=== PATIENT | male | born 1975 | race African-American/Black ===

== ENCOUNTER 2022-06-13 12:33 | Inpatient (IN) | payer MEDICAID ==
[~2022-06-13] VITALS: Ht 175.3 cm; Wt 77.6 kg
[2022-06-13 13:31] LABS: AMPHET/METH SCREEN,URINE NEGATIVE (NEGATIVE); BARBITURATE SCREEN, URINE NEGATIVE (NEGATIVE); BENZODIAZEPINES SCREEN,URINE NEGATIVE (NEGATIVE); CANNABINOID SCREEN,URINE POSITIVE (NEGATIVE); COCAINE SCREEN,URINE NEGATIVE (NEGATIVE); METHADONE SCREEN, URINE NEGATIVE (NEGATIVE); OPIATE SCREEN,URINE NEGATIVE (NEGATIVE)
[2022-06-13 13:32] LABS: PHENCYCLIDINE SCREEN,URINE NEGATIVE (NEGATIVE)
[2022-06-13 14:00] LABS: BASOPHILS % (AUTO) 0.3 % (0.0-2.0); EOSINOPHILS % (AUTO) 0.4 % (1.0-6.0); HEMATOCRIT 37.3 % (41-53); HEMOGLOBIN 12.4 g/dL (13.5-17.5); LYMPHOCYTES # (AUTO) 1.3 K/uL (1.0-4.8); LYMPHOCYTES % (AUTO) 22.2 % (22.0-44.0); MEAN CORPUSCULAR HEMOGLOBIN 30.7 pg (26.0-34.0); MEAN CORPUSCULAR HGB CONC 33.3 G/dL (31.0-37.0); MEAN CORPUSCULAR VOLUME 92 fL (80-100); MONOCYTES # (AUTO) 0.2 K/uL (0.1-1.0); MONOCYTES % (AUTO) 3.8 % (2.0-9.0); NEUTROPHILS # (AUTO) 4.2 K/uL (1.8-7.7); NEUTROPHILS % (AUTO) 73.3 % (40.0-70.0); PLATELET COUNT (AUTO) 216 K/uL (150-450); RED BLOOD CELL COUNT(AUTO) 4.04 MIL/uL (4.50-5.90); RED CELL DISTRIBUTION WIDTH 12.9 % (11.5-14.5)
[2022-06-13 14:21] LABS: SALICYLATE 5.1 mg/dL (2.8-20.0)
[2022-06-13] MEDS ORDERED: CARB100 PO (14:27)
[2022-06-13] MEDS ORDERED: PRAZ5 PO (14:27)
[2022-06-13] MEDS ORDERED: QUET200T PO (14:27)
[2022-06-13] MEDS ORDERED: HYDR-4527 PO (14:27)
[2022-06-13] MEDS ORDERED: CITA-144 PO (14:27)
[2022-06-13] MEDS ORDERED: PROMETHAZINE HCL 25 MG TABLET PO PRN ×2 (14:45→21:15)
[2022-06-13] MEDS ORDERED: GuaiFENesin/D-METHORPHAN [SUGAR-FREE] 200-20MG/10 ML SYRUP UDCUP PO PRN (14:45)
[2022-06-13] MEDS ORDERED: OLANZapine 5 MG RAPDIS TABLET PO PRN (14:45)
[2022-06-13] MEDS ORDERED: HydrOXYzine PAMOATE 50 MG CAPSULE PO PRN (14:45)
[2022-06-13] MEDS ORDERED: TUBERCULIN, PURIFIED PROTEIN DERIVATIVE 5 TU/0.1 ML SYRINGE ID ONE ×2 (14:45→21:15)
[2022-06-13 15:08] LABS: ALANINE AMINOTRANSFERASE 20 U/L (12-78); ALBUMIN 3.4 g/dL (3.4-5.0); ALKALINE PHOSPHATASE 71 U/L (46-116); ANION GAP 7 mmol/L (8-16); ASPARTATE AMINOTRANSFERASE 15 U/L (15-37); BILIRUBIN,TOTAL 0.2 mg/dL (0.1-1.0); CALCIUM, TOTAL 8.5 mg/dL (8.8-10.5); CARBON DIOXIDE 28 mmol/L (22-29); CHLORIDE 106 mmol/L (98-107); CREATININE 1.49 mg/dL (0.60-1.30); GLOMERULAR FILTR. RATE CALC > 60 mL/min (>60); GLUCOSE,RANDOM 85 mg/dL (70-110); POTASSIUM 4.3 mmol/L (3.5-5.1); SODIUM SERUM 141 mmol/L (136-145); UREA NITROGEN, BLOOD 15 mg/dL (7-18)
[2022-06-13 15:09] LABS: COVID AG,FIA SOURCE NASAL SWAB
[2022-06-13 15:09] LABS: ACETAMINOPHEN < 2 mcg/mL (10-30)
[2022-06-13 15:20] LABS: TOTAL PROTEIN, SERUM 6.8 g/dL (6.4-8.2)
[2022-06-13] MEDS: THIAMINE 100 MG TABLET PO SCH (19:38)
[2022-06-13] MEDS ORDERED: MELATONIN 5 MG TABLET PO SCH (21:00)
[2022-06-13] MEDS ORDERED: OLANZapine 5 MG RAPDIS TABLET PO SCH (21:00)
[2022-06-13] MEDS: MELATONIN 5 MG TABLET PO SCH (21:00)
[2022-06-13] MEDS ORDERED: ACETAMINOPHEN 325 MG TABLET PO PRN (21:15)
[2022-06-13] MEDS ORDERED: LOPERAMIDE HCL 2 MG CAPSULE PO PRN (21:15)
[2022-06-13] MEDS ORDERED: MAG HYDROX/AL HYDROX/SIMETH ES 30 ML SUSPENSION UDCUP PO PRN (21:15)
[2022-06-13 22:21] VITALS: BP 117/75
[2022-06-14] MEDS ORDERED: INFLUENZA VIRUS VACCINE QVS 2022-23 (6MO+)/PF 60 MCG/0.5 ML SYRINGE IM. ONE (04:30)
[2022-06-14] MEDS: GABAPENTIN 300 MG CAPSULE PO SCH ×4 (08:15→20:38)
[2022-06-14] MEDS: FOLIC ACID 1 MG TABLET PO SCH (08:15)
[2022-06-14] MEDS: OMEGA-3/DHA/EPA/FISH OIL 1,000 MG CAPSULE PO SCH (08:15)
[2022-06-14] MEDS: MULTIVITAMINS WITH MINERALS, THERAPEUTIC TABLET PO SCH (08:15)
[2022-06-14] MEDS: THIAMINE 100 MG TABLET PO SCH ×2 (08:15→16:14)
[2022-06-14] MEDS: NALTREXONE HCL 50 MG TABLET PO SCH (08:16)
[2022-06-14 08:53] VITALS: BP 109/56
[2022-06-14] MEDS ORDERED: OMEGA-3/DHA/EPA/FISH OIL 1,000 MG CAPSULE PO SCH (09:00)
[2022-06-14] MEDS ORDERED: NALTREXONE HCL 50 MG TABLET PO SCH (09:00)
[2022-06-14] MEDS ORDERED: DULoxetine HCL 20 MG CAPSULE PO SCH (09:00)
[2022-06-14] MEDS ORDERED: LURASIDONE HCL 20 MG TABLET PO SCH (17:00)
[2022-06-14] MEDS ORDERED: ACETAMINOPHEN 325 MG TABLET PO PRN (20:30)
[2022-06-14] MEDS ORDERED: IBUPROFEN 600 MG TABLET PO PRN (20:30)
[2022-06-14 20:34] VITALS: BP 128/73
[2022-06-14] MEDS: DIVALPROEX SODIUM 500 MG ER TABLET PO SCH (20:38)
[2022-06-14] MEDS: PRAZOSIN HCL 1 MG CAPSULE PO SCH (20:38)
[2022-06-14] MEDS: MELATONIN 5 MG TABLET PO SCH (20:38)
[2022-06-15 02:28] VITALS: BP 123/89
[2022-06-15] MEDS: LORazepam 2 MG TABLET PO PRN (02:38)
[2022-06-15] MEDS: ZOLPIDEM TARTRATE 10 MG TABLET PO PRN (02:38)
[2022-06-15 08:30] VITALS: BP 128/70
[2022-06-15] MEDS: NALTREXONE HCL 50 MG TABLET PO SCH (08:44)
[2022-06-15] MEDS: GABAPENTIN 300 MG CAPSULE PO SCH ×2 (08:45→12:16)
[2022-06-15] MEDS: BuPROPion HCL XL 150 MG ER TABLET PO SCH (08:45)
[2022-06-15] MEDS: MULTIVITAMINS WITH MINERALS, THERAPEUTIC TABLET PO SCH (08:45)
[2022-06-15] MEDS: OMEGA-3/DHA/EPA/FISH OIL 1,000 MG CAPSULE PO SCH (08:45)
[2022-06-15] MEDS: THIAMINE 100 MG TABLET PO SCH ×2 (08:45→17:04)
[2022-06-15] MEDS: FOLIC ACID 1 MG TABLET PO SCH (08:45)
[2022-06-15] MEDS ORDERED: LURASIDONE HCL 40 MG TABLET PO SCH (17:00)
[2022-06-15] MEDS: GABAPENTIN 400 MG CAPSULE PO SCH ×2 (17:07→20:15)
[2022-06-15] MEDS: PRAZOSIN HCL 1 MG CAPSULE PO SCH (20:15)
[2022-06-15] MEDS: DIVALPROEX SODIUM 500 MG ER TABLET PO SCH (20:15)
[2022-06-15] MEDS: MELATONIN 5 MG TABLET PO SCH (20:15)
[2022-06-15 20:26] VITALS: BP 118/67
[2022-06-15] MEDS ORDERED: TraZODone HCL 100 MG TABLET PO SCH (21:00)
[2022-06-15] MEDS ORDERED: MIRTAZAPINE 15 MG TABLET PO SCH (21:00)
[2022-06-16 08:13] VITALS: BP 120/73
[2022-06-16] MEDS: THIAMINE 100 MG TABLET PO SCH ×2 (09:00→17:04)
[2022-06-16] MEDS: NALTREXONE HCL 50 MG TABLET PO SCH (09:00)
[2022-06-16] MEDS: FOLIC ACID 1 MG TABLET PO SCH (09:00)
[2022-06-16] MEDS: MULTIVITAMINS WITH MINERALS, THERAPEUTIC TABLET PO SCH (09:00)
[2022-06-16] MEDS: OMEGA-3/DHA/EPA/FISH OIL 1,000 MG CAPSULE PO SCH (09:00)
[2022-06-16] MEDS: BuPROPion HCL XL 150 MG ER TABLET PO SCH (09:24)
[2022-06-16] MEDS: GABAPENTIN 400 MG CAPSULE PO SCH ×4 (09:24→20:17)
[2022-06-16] MEDS: DIVALPROEX SODIUM 500 MG ER TABLET PO SCH (20:17)
[2022-06-16] MEDS: MELATONIN 5 MG TABLET PO SCH (20:17)
[2022-06-16] MEDS: QUEtiapine FUMARATE 200 MG TABLET PO SCH (20:18)
[2022-06-16 20:42] VITALS: BP 106/77
[2022-06-16] MEDS ORDERED: PRAZOSIN HCL 1 MG CAPSULE PO SCH (21:00)
[2022-06-16] MEDS ORDERED: MIRTAZAPINE 15 MG TABLET PO SCH (21:00)
[2022-06-17 08:31] VITALS: BP 106/78
[2022-06-17] MEDS: MULTIVITAMINS WITH MINERALS, THERAPEUTIC TABLET PO SCH (09:00)
[2022-06-17] MEDS: THIAMINE 100 MG TABLET PO SCH ×2 (09:00→17:17)
[2022-06-17] MEDS: FOLIC ACID 1 MG TABLET PO SCH (09:00)
[2022-06-17] MEDS ORDERED: BuPROPion HCL XL 150 MG ER TABLET PO SCH (09:00)
[2022-06-17] MEDS: GABAPENTIN 400 MG CAPSULE PO SCH ×2 (09:00→12:11)
[2022-06-17] MEDS: OMEGA-3/DHA/EPA/FISH OIL 1,000 MG CAPSULE PO SCH (09:00)
[2022-06-17] MEDS: NALTREXONE HCL 50 MG TABLET PO SCH (09:02)
[2022-06-17] MEDS: GABAPENTIN 300 MG CAPSULE PO SCH ×2 (17:17→20:45)
[2022-06-17] MEDS: QUEtiapine FUMARATE 200 MG TABLET PO SCH (20:43)
[2022-06-17] MEDS: DIVALPROEX SODIUM 500 MG ER TABLET PO SCH (20:44)
[2022-06-17] MEDS: MELATONIN 5 MG TABLET PO SCH (20:44)
[2022-06-17] MEDS: MIRTAZAPINE 30 MG TABLET PO SCH (20:47)
[2022-06-17] MEDS: PRAZOSIN HCL 1 MG CAPSULE PO SCH (21:18)
[2022-06-18] VITALS: BP 111/72
[2022-06-18 09:04] VITALS: BP 118/72
[2022-06-18] MEDS: LORazepam 2 MG TABLET PO PRN (10:05)
[2022-06-18] MEDS: NALTREXONE HCL 50 MG TABLET PO SCH (10:06)
[2022-06-18] MEDS: THIAMINE 100 MG TABLET PO SCH ×2 (10:06→16:49)
[2022-06-18] MEDS: MULTIVITAMINS WITH MINERALS, THERAPEUTIC TABLET PO SCH (10:06)
[2022-06-18] MEDS: FOLIC ACID 1 MG TABLET PO SCH (10:08)
[2022-06-18] MEDS: BuPROPion HCL XL 150 MG ER TABLET PO SCH (10:08)
[2022-06-18] MEDS: GABAPENTIN 300 MG CAPSULE PO SCH ×4 (10:08→20:12)
[2022-06-18] MEDS: OMEGA-3/DHA/EPA/FISH OIL 1,000 MG CAPSULE PO SCH (10:09)
[2022-06-18 20:06] VITALS: BP 124/71
[2022-06-18] MEDS: MELATONIN 5 MG TABLET PO SCH (20:09)
[2022-06-18] MEDS: PRAZOSIN HCL 1 MG CAPSULE PO SCH (20:09)
[2022-06-18] MEDS: MIRTAZAPINE 30 MG TABLET PO SCH (20:12)
[2022-06-18] MEDS: DIVALPROEX SODIUM 500 MG ER TABLET PO SCH (20:12)
[2022-06-18] MEDS: QUEtiapine FUMARATE 200 MG TABLET PO SCH (20:12)
[2022-06-19 08:28] VITALS: BP 120/70
[2022-06-19 08:31] LABS: GLUCOMETER DEV NAME(LOC) POC.BV
[2022-06-19] MEDS: FLUTICASONE PROPIONATE 50 MCG/SPRAY 16 GM NASAL SPRAY NASAL SCH ×2 (09:00→17:42)
[2022-06-19] MEDS: BuPROPion HCL XL 150 MG ER TABLET PO SCH (10:04)
[2022-06-19] MEDS: MULTIVITAMINS WITH MINERALS, THERAPEUTIC TABLET PO SCH (10:04)
[2022-06-19] MEDS: NALTREXONE HCL 50 MG TABLET PO SCH (10:05)
[2022-06-19] MEDS: THIAMINE 100 MG TABLET PO SCH ×2 (10:05→17:41)
[2022-06-19] MEDS: GABAPENTIN 300 MG CAPSULE PO SCH ×4 (10:05→20:51)
[2022-06-19] MEDS: OMEGA-3/DHA/EPA/FISH OIL 1,000 MG CAPSULE PO SCH (10:06)
[2022-06-19] MEDS: FOLIC ACID 1 MG TABLET PO SCH (10:06)
[2022-06-19] MEDS: LORazepam 2 MG TABLET PO PRN (17:42)
[2022-06-19] MEDS: MAGNESIUM HYDROXIDE SUSPENSION 30 ML UDCUP PO PRN (20:08)
[2022-06-19] MEDS: QUEtiapine FUMARATE 200 MG TABLET PO SCH (20:51)
[2022-06-19] MEDS: DIVALPROEX SODIUM 500 MG ER TABLET PO SCH (20:51)
[2022-06-19] MEDS: MIRTAZAPINE 30 MG TABLET PO SCH (20:51)
[2022-06-19] MEDS: PRAZOSIN HCL 1 MG CAPSULE PO SCH (20:52)
[2022-06-19] MEDS: MELATONIN 5 MG TABLET PO SCH (20:52)
[2022-06-19 22:05] VITALS: BP 119/81
[2022-06-20] MEDS: LORazepam 2 MG TABLET PO PRN (04:48)
[2022-06-20 04:51] VITALS: BP 121/68
[2022-06-20 08:28] VITALS: BP 155/90
[2022-06-20] MEDS: FOLIC ACID 1 MG TABLET PO SCH (10:40)
[2022-06-20] MEDS: GABAPENTIN 300 MG CAPSULE PO SCH ×4 (10:40→21:40)
[2022-06-20] MEDS: BuPROPion HCL XL 150 MG ER TABLET PO SCH (10:40)
[2022-06-20] MEDS: MULTIVITAMINS WITH MINERALS, THERAPEUTIC TABLET PO SCH (10:40)
[2022-06-20] MEDS: NALTREXONE HCL 50 MG TABLET PO SCH (10:40)
[2022-06-20] MEDS: THIAMINE 100 MG TABLET PO SCH ×2 (10:40→16:59)
[2022-06-20] MEDS: OMEGA-3/DHA/EPA/FISH OIL 1,000 MG CAPSULE PO SCH (10:40)
[2022-06-20] MEDS: FLUTICASONE PROPIONATE 50 MCG/SPRAY 16 GM NASAL SPRAY NASAL SCH ×2 (10:41→17:27)
[2022-06-20 20:44] VITALS: BP 115/74
[2022-06-20] MEDS: MIRTAZAPINE 30 MG TABLET PO SCH (21:38)
[2022-06-20] MEDS: DIVALPROEX SODIUM 500 MG ER TABLET PO SCH (21:39)
[2022-06-20] MEDS: QUEtiapine FUMARATE 200 MG TABLET PO SCH (21:40)
[2022-06-20] MEDS: MELATONIN 5 MG TABLET PO SCH (21:41)
[2022-06-20] MEDS: PRAZOSIN HCL 1 MG CAPSULE PO SCH (21:41)
[2022-06-21 08:56] VITALS: BP 119/76
[2022-06-21] MEDS ORDERED: PARoxetine HCL 20 MG TABLET PO SCH (09:00)
[2022-06-21] MEDS: GABAPENTIN 300 MG CAPSULE PO SCH ×4 (09:46→20:25)
[2022-06-21] MEDS: NALTREXONE HCL 50 MG TABLET PO SCH (09:46)
[2022-06-21] MEDS: BuPROPion HCL XL 150 MG ER TABLET PO SCH (09:47)
[2022-06-21] MEDS: FOLIC ACID 1 MG TABLET PO SCH (09:47)
[2022-06-21] MEDS: OMEGA-3/DHA/EPA/FISH OIL 1,000 MG CAPSULE PO SCH (09:47)
[2022-06-21] MEDS: MULTIVITAMINS WITH MINERALS, THERAPEUTIC TABLET PO SCH (09:47)
[2022-06-21] MEDS: THIAMINE 100 MG TABLET PO SCH ×2 (09:47→17:08)
[2022-06-21] MEDS: FLUTICASONE PROPIONATE 50 MCG/SPRAY 16 GM NASAL SPRAY NASAL SCH ×2 (09:48→17:10)
[2022-06-21] MEDS: NICOTINE POLACRILEX 2 MG LOZENGE PO PRN (13:26)
[2022-06-21] MEDS: PRAZOSIN HCL 1 MG CAPSULE PO SCH (20:25)
[2022-06-21] MEDS: DIVALPROEX SODIUM 500 MG ER TABLET PO SCH (20:25)
[2022-06-21] MEDS: MIRTAZAPINE 30 MG TABLET PO SCH (20:25)
[2022-06-21] MEDS: QUEtiapine FUMARATE 200 MG TABLET PO SCH (20:25)
[2022-06-21] MEDS: MELATONIN 5 MG TABLET PO SCH (20:25)
[2022-06-21 20:49] VITALS: BP 123/76
[2022-06-22 08:36] VITALS: BP 135/81
[2022-06-22] MEDS ORDERED: PARoxetine HCL 10 MG TABLET PO SCH (09:00)
[2022-06-22] MEDS ORDERED: PARoxetine HCL 20 MG TABLET PO SCH (09:00)
[2022-06-22] MEDS: MULTIVITAMINS WITH MINERALS, THERAPEUTIC TABLET PO SCH (09:31)
[2022-06-22] MEDS: THIAMINE 100 MG TABLET PO SCH ×2 (09:31→17:10)
[2022-06-22] MEDS: BuPROPion HCL XL 150 MG ER TABLET PO SCH (09:31)
[2022-06-22] MEDS: FOLIC ACID 1 MG TABLET PO SCH (09:31)
[2022-06-22] MEDS: NALTREXONE HCL 50 MG TABLET PO SCH (09:32)
[2022-06-22] MEDS: OMEGA-3/DHA/EPA/FISH OIL 1,000 MG CAPSULE PO SCH (09:32)
[2022-06-22] MEDS: GABAPENTIN 300 MG CAPSULE PO SCH ×3 (09:33→17:11)
[2022-06-22] MEDS: FLUTICASONE PROPIONATE 50 MCG/SPRAY 16 GM NASAL SPRAY NASAL SCH ×2 (09:33→17:11)
[2022-06-22] MEDS: LORazepam 2 MG TABLET PO PRN (10:51)
[2022-06-22] MEDS: MAGNESIUM HYDROXIDE SUSPENSION 30 ML UDCUP PO PRN (12:58)
[2022-06-22] MEDS: NICOTINE POLACRILEX 2 MG LOZENGE PO PRN (15:08)
[2022-06-22] MEDS: DIVALPROEX SODIUM 500 MG ER TABLET PO SCH (17:10)
[2022-06-22] MEDS: QUEtiapine FUMARATE 200 MG TABLET PO SCH (20:31)
[2022-06-22] MEDS: MELATONIN 5 MG TABLET PO SCH (20:31)
[2022-06-22] MEDS: MIRTAZAPINE 30 MG TABLET PO SCH (20:33)
[2022-06-22] MEDS: PRAZOSIN HCL 1 MG CAPSULE PO SCH (20:33)
[2022-06-22 20:36] VITALS: BP 119/73
[2022-06-23 06:35] VITALS: BP 130/80
[2022-06-23 08:26] VITALS: BP 128/80
[2022-06-23] MEDS: FOLIC ACID 1 MG TABLET PO SCH (09:24)
[2022-06-23] MEDS: DIVALPROEX SODIUM 500 MG ER TABLET PO SCH ×3 (09:24→17:23)
[2022-06-23] MEDS: OMEGA-3/DHA/EPA/FISH OIL 1,000 MG CAPSULE PO SCH (09:24)
[2022-06-23] MEDS: FLUTICASONE PROPIONATE 50 MCG/SPRAY 16 GM NASAL SPRAY NASAL SCH ×2 (09:24→17:24)
[2022-06-23] MEDS: GABAPENTIN 300 MG CAPSULE PO SCH ×3 (09:25→17:23)
[2022-06-23] MEDS: BuPROPion HCL XL 150 MG ER TABLET PO SCH (09:27)
[2022-06-23] MEDS: NALTREXONE HCL 50 MG TABLET PO SCH (09:27)
[2022-06-23] MEDS: PARoxetine HCL 20 MG TABLET PO SCH (09:27)
[2022-06-23] MEDS: MULTIVITAMINS WITH MINERALS, THERAPEUTIC TABLET PO SCH (09:27)
[2022-06-23] MEDS: NICOTINE POLACRILEX 2 MG LOZENGE PO PRN ×2 (11:53→16:25)
[2022-06-23] MEDS ORDERED: PALIPERIDONE PALMITATE 234 MG/1.5 ML SYRINGE IM ONE (14:45)
[2022-06-23] MEDS: PRAZOSIN HCL 1 MG CAPSULE PO SCH (20:06)
[2022-06-23] MEDS: QUEtiapine FUMARATE 200 MG TABLET PO SCH (20:07)
[2022-06-23] MEDS: MELATONIN 5 MG TABLET PO SCH (20:07)
[2022-06-23] MEDS: MIRTAZAPINE 30 MG TABLET PO SCH (20:08)
[2022-06-23] MEDS: LORazepam 2 MG TABLET PO PRN (20:08)
[2022-06-23 21:33] VITALS: BP 118/83
[2022-06-24] MEDS: BuPROPion HCL XL 150 MG ER TABLET PO SCH (08:58)
[2022-06-24] MEDS: DIVALPROEX SODIUM 500 MG ER TABLET PO SCH ×3 (08:58→17:03)
[2022-06-24] MEDS: MULTIVITAMINS WITH MINERALS, THERAPEUTIC TABLET PO SCH (08:58)
[2022-06-24] MEDS: GABAPENTIN 300 MG CAPSULE PO SCH ×3 (08:58→17:03)
[2022-06-24] MEDS: OMEGA-3/DHA/EPA/FISH OIL 1,000 MG CAPSULE PO SCH (08:58)
[2022-06-24] MEDS: PARoxetine HCL 20 MG TABLET PO SCH (08:58)
[2022-06-24] MEDS: FLUTICASONE PROPIONATE 50 MCG/SPRAY 16 GM NASAL SPRAY NASAL SCH ×2 (09:01→17:04)
[2022-06-24] MEDS: NALTREXONE HCL 50 MG TABLET PO SCH (09:06)
[2022-06-24 09:33] VITALS: BP 135/88
[2022-06-24] MEDS: LORazepam 2 MG TABLET PO PRN (12:10)
[2022-06-24] MEDS: NICOTINE POLACRILEX 2 MG LOZENGE PO PRN (16:05)
[2022-06-24] MEDS: MAGNESIUM HYDROXIDE SUSPENSION 30 ML UDCUP PO PRN (17:04)
[2022-06-24 20:00] VITALS: BP 125/74
[2022-06-24] MEDS: MIRTAZAPINE 30 MG TABLET PO SCH (20:25)
[2022-06-24] MEDS: QUEtiapine FUMARATE 200 MG TABLET PO SCH (20:25)
[2022-06-24] MEDS: MELATONIN 5 MG TABLET PO SCH (20:25)
[2022-06-24] MEDS ORDERED: PRAZOSIN HCL 1 MG CAPSULE PO ONE (21:00)
[2022-06-25 08:52] VITALS: BP 135/69
[2022-06-25] MEDS: FLUTICASONE PROPIONATE 50 MCG/SPRAY 16 GM NASAL SPRAY NASAL SCH ×2 (09:08→17:20)
[2022-06-25] MEDS: MULTIVITAMINS WITH MINERALS, THERAPEUTIC TABLET PO SCH (09:08)
[2022-06-25] MEDS: GABAPENTIN 400 MG CAPSULE PO SCH ×3 (09:08→17:19)
[2022-06-25] MEDS: DIVALPROEX SODIUM 500 MG ER TABLET PO SCH ×3 (09:09→17:19)
[2022-06-25] MEDS: PARoxetine HCL 20 MG TABLET PO SCH (09:09)
[2022-06-25] MEDS: NALTREXONE HCL 50 MG TABLET PO SCH (09:09)
[2022-06-25] MEDS: OMEGA-3/DHA/EPA/FISH OIL 1,000 MG CAPSULE PO SCH (09:09)
[2022-06-25] MEDS: BuPROPion HCL XL 150 MG ER TABLET PO SCH (09:10)
[2022-06-25] MEDS: NICOTINE POLACRILEX 2 MG LOZENGE PO PRN (16:10)
[2022-06-25] MEDS: LORazepam 2 MG TABLET PO PRN (16:10)
[2022-06-25] MEDS: MELATONIN 5 MG TABLET PO SCH (20:26)
[2022-06-25] MEDS: QUEtiapine FUMARATE 200 MG TABLET PO SCH (20:26)
[2022-06-25] MEDS: MIRTAZAPINE 30 MG TABLET PO SCH (20:27)
[2022-06-25] MEDS: PRAZOSIN HCL 5 MG CAPSULE PO SCH (20:27)
[2022-06-25 20:31] VITALS: BP 118/81
[2022-06-26 08:42] VITALS: BP 116/56
[2022-06-26] MEDS: OMEGA-3/DHA/EPA/FISH OIL 1,000 MG CAPSULE PO SCH (09:29)
[2022-06-26] MEDS: MULTIVITAMINS WITH MINERALS, THERAPEUTIC TABLET PO SCH (09:29)
[2022-06-26] MEDS: DIVALPROEX SODIUM 500 MG ER TABLET PO SCH ×3 (09:29→16:45)
[2022-06-26] MEDS: GABAPENTIN 400 MG CAPSULE PO SCH ×3 (09:29→16:45)
[2022-06-26] MEDS: NALTREXONE HCL 50 MG TABLET PO SCH (09:29)
[2022-06-26] MEDS: FLUTICASONE PROPIONATE 50 MCG/SPRAY 16 GM NASAL SPRAY NASAL SCH ×2 (09:29→16:46)
[2022-06-26] MEDS: PARoxetine HCL 20 MG TABLET PO SCH (09:29)
[2022-06-26] MEDS: BuPROPion HCL XL 150 MG ER TABLET PO SCH (09:29)
[2022-06-26 09:36] LABS: GLUCOMETER DEV NAME(LOC) POC.BV
[2022-06-26] MEDS: NICOTINE POLACRILEX 2 MG LOZENGE PO PRN (13:17)
[2022-06-26] MEDS: LORazepam 2 MG TABLET PO PRN (20:07)
[2022-06-26] MEDS: MELATONIN 5 MG TABLET PO SCH (20:12)
[2022-06-26] MEDS: QUEtiapine FUMARATE 200 MG TABLET PO SCH (20:12)
[2022-06-26] MEDS: MIRTAZAPINE 30 MG TABLET PO SCH (20:12)
[2022-06-26] MEDS: PRAZOSIN HCL 5 MG CAPSULE PO SCH (20:13)
[2022-06-26] MEDS: MAGNESIUM HYDROXIDE SUSPENSION 30 ML UDCUP PO PRN (20:15)
[2022-06-26 20:16] VITALS: BP 117/74
[2022-06-26 23:21] LABS: GLUCOMETER DEV NAME(LOC) POC.BV
[2022-06-27] MEDS: BuPROPion HCL XL 150 MG ER TABLET PO SCH (08:43)
[2022-06-27] MEDS: OMEGA-3/DHA/EPA/FISH OIL 1,000 MG CAPSULE PO SCH (08:43)
[2022-06-27] MEDS: NALTREXONE HCL 50 MG TABLET PO SCH (08:44)
[2022-06-27] MEDS: DIVALPROEX SODIUM 500 MG ER TABLET PO SCH ×3 (08:44→16:10)
[2022-06-27] MEDS: GABAPENTIN 400 MG CAPSULE PO SCH ×3 (08:44→16:10)
[2022-06-27] MEDS: PARoxetine HCL 20 MG TABLET PO SCH (08:44)
[2022-06-27] MEDS: MULTIVITAMINS WITH MINERALS, THERAPEUTIC TABLET PO SCH (08:44)
[2022-06-27] MEDS: FLUTICASONE PROPIONATE 50 MCG/SPRAY 16 GM NASAL SPRAY NASAL SCH ×2 (08:47→16:10)
[2022-06-27] MEDS: LORazepam 2 MG TABLET PO PRN ×2 (08:51→13:23)
[2022-06-27 08:52] VITALS: BP 110/66
[2022-06-27] MEDS ORDERED: PALIPERIDONE PALMITATE 156 MG/ML SYRINGE IM ONE (09:00)
[2022-06-27] MEDS: NICOTINE POLACRILEX 2 MG LOZENGE PO PRN (11:59)
[2022-06-27] MEDS ORDERED: LORazepam 1 MG TABLET PO PRN (17:45)
[2022-06-27] MEDS: MELATONIN 5 MG TABLET PO SCH (20:05)
[2022-06-27] MEDS: PRAZOSIN HCL 5 MG CAPSULE PO SCH (20:05)
[2022-06-27] MEDS: QUEtiapine FUMARATE 200 MG TABLET PO SCH (20:05)
[2022-06-27] MEDS: MIRTAZAPINE 30 MG TABLET PO SCH (20:06)
[2022-06-27 21:13] VITALS: BP 109/69
[2022-06-28 08:36] VITALS: BP 119/69
[2022-06-28] MEDS: DOCUSATE SODIUM 250 MG CAPSULE PO SCH ×2 (08:58→17:19)
[2022-06-28] MEDS: OMEGA-3/DHA/EPA/FISH OIL 1,000 MG CAPSULE PO SCH (08:58)
[2022-06-28] MEDS: DIVALPROEX SODIUM 500 MG ER TABLET PO SCH ×3 (08:58→17:18)
[2022-06-28] MEDS: PARoxetine HCL 20 MG TABLET PO SCH (08:59)
[2022-06-28] MEDS: NALTREXONE HCL 50 MG TABLET PO SCH (08:59)
[2022-06-28] MEDS: GABAPENTIN 400 MG CAPSULE PO SCH ×3 (08:59→17:17)
[2022-06-28] MEDS: GABAPENTIN 100 MG CAPSULE PO SCH ×2 (08:59→13:03)
[2022-06-28] MEDS: BuPROPion HCL XL 150 MG ER TABLET PO SCH (09:00)
[2022-06-28] MEDS: MULTIVITAMINS WITH MINERALS, THERAPEUTIC TABLET PO SCH (09:00)
[2022-06-28] MEDS: FLUTICASONE PROPIONATE 50 MCG/SPRAY 16 GM NASAL SPRAY NASAL SCH ×2 (09:02→17:17)
[2022-06-28] MEDS: NICOTINE POLACRILEX 2 MG LOZENGE PO PRN (10:06)
[2022-06-28] MEDS: GABAPENTIN 300 MG CAPSULE PO SCH (17:17)
[2022-06-28] MEDS: QUEtiapine FUMARATE 200 MG TABLET PO SCH (20:24)
[2022-06-28] MEDS: MELATONIN 5 MG TABLET PO SCH (20:24)
[2022-06-28] MEDS: MIRTAZAPINE 30 MG TABLET PO SCH (20:33)
[2022-06-28] MEDS: PRAZOSIN HCL 5 MG CAPSULE PO SCH (21:00)
[2022-06-28 22:43] VITALS: BP 122/70
[2022-06-29 08:29] VITALS: BP 119/79
[2022-06-29] MEDS: FLUTICASONE PROPIONATE 50 MCG/SPRAY 16 GM NASAL SPRAY NASAL SCH ×2 (08:44→16:39)
[2022-06-29] MEDS: GABAPENTIN 400 MG CAPSULE PO SCH ×3 (08:45→16:38)
[2022-06-29] MEDS: OMEGA-3/DHA/EPA/FISH OIL 1,000 MG CAPSULE PO SCH (08:45)
[2022-06-29] MEDS: DIVALPROEX SODIUM 500 MG ER TABLET PO SCH ×3 (08:45→16:39)
[2022-06-29] MEDS: GABAPENTIN 300 MG CAPSULE PO SCH ×3 (08:45→16:38)
[2022-06-29] MEDS: DOCUSATE SODIUM 250 MG CAPSULE PO SCH ×2 (08:45→16:39)
[2022-06-29] MEDS: BuPROPion HCL XL 150 MG ER TABLET PO SCH (08:46)
[2022-06-29] MEDS: MULTIVITAMINS WITH MINERALS, THERAPEUTIC TABLET PO SCH (08:46)
[2022-06-29] MEDS: PARoxetine HCL 20 MG TABLET PO SCH (08:46)
[2022-06-29] MEDS: NALTREXONE HCL 50 MG TABLET PO SCH (08:46)
[2022-06-29] MEDS: NICOTINE POLACRILEX 2 MG LOZENGE PO PRN (12:48)
[2022-06-29] MEDS: QUEtiapine FUMARATE 25 MG TABLET PO SCH (16:39)
[2022-06-29] MEDS: LORazepam 0.5 MG TABLET PO PRN (16:39)
[2022-06-29 20:08] VITALS: BP 117/76
[2022-06-29] MEDS: MELATONIN 5 MG TABLET PO SCH (20:08)
[2022-06-29] MEDS: PRAZOSIN HCL 5 MG CAPSULE PO SCH (20:09)
[2022-06-29] MEDS: MIRTAZAPINE 30 MG TABLET PO SCH (20:09)
[2022-06-29] MEDS: QUEtiapine FUMARATE 200 MG TABLET PO SCH (20:10)
[2022-06-29] MEDS: ZOLPIDEM TARTRATE 10 MG TABLET PO PRN (22:24)
[2022-06-30] MEDS: LURASIDONE HCL 20 MG TABLET PO PRN ×2 (02:53→13:35)
[2022-06-30 08:14] VITALS: BP 124/77
[2022-06-30] MEDS: GABAPENTIN 400 MG CAPSULE PO SCH ×3 (08:32→16:25)
[2022-06-30] MEDS: MULTIVITAMINS WITH MINERALS, THERAPEUTIC TABLET PO SCH (08:32)
[2022-06-30] MEDS: DOCUSATE SODIUM 250 MG CAPSULE PO SCH ×2 (08:32→16:25)
[2022-06-30] MEDS: BuPROPion HCL XL 150 MG ER TABLET PO SCH (08:32)
[2022-06-30] MEDS: NALTREXONE HCL 50 MG TABLET PO SCH (08:32)
[2022-06-30] MEDS: OMEGA-3/DHA/EPA/FISH OIL 1,000 MG CAPSULE PO SCH (08:32)
[2022-06-30] MEDS: PARoxetine HCL 20 MG TABLET PO SCH (08:32)
[2022-06-30] MEDS: DIVALPROEX SODIUM 500 MG ER TABLET PO SCH ×3 (08:33→16:25)
[2022-06-30] MEDS: GABAPENTIN 300 MG CAPSULE PO SCH ×3 (08:33→16:25)
[2022-06-30] MEDS: LORazepam 0.5 MG TABLET PO PRN (09:08)
[2022-06-30] MEDS: QUEtiapine FUMARATE 25 MG TABLET PO SCH ×3 (09:17→16:25)
[2022-06-30] MEDS: FLUTICASONE PROPIONATE 50 MCG/SPRAY 16 GM NASAL SPRAY NASAL SCH ×2 (09:18→16:24)
[2022-06-30] MEDS: NICOTINE POLACRILEX 2 MG LOZENGE PO PRN (14:44)
[2022-06-30] MEDS: QUEtiapine FUMARATE 200 MG TABLET PO SCH (20:03)
[2022-06-30] MEDS: MIRTAZAPINE 30 MG TABLET PO SCH (20:03)
[2022-06-30] MEDS: PRAZOSIN HCL 5 MG CAPSULE PO SCH (20:03)
[2022-06-30] MEDS: MELATONIN 5 MG TABLET PO SCH (20:03)
[2022-06-30 20:23] VITALS: BP 118/83
[2022-07-01 02:05] VITALS: BP 121/88
[2022-07-01] MEDS: ZOLPIDEM TARTRATE 10 MG TABLET PO PRN (02:08)
[2022-07-01 08:37] VITALS: BP 140/86
[2022-07-01] MEDS: DIVALPROEX SODIUM 500 MG ER TABLET PO SCH ×3 (08:46→16:10)
[2022-07-01] MEDS: LURASIDONE HCL 20 MG TABLET PO PRN (08:46)
[2022-07-01] MEDS: NALTREXONE HCL 50 MG TABLET PO SCH (08:46)
[2022-07-01] MEDS: GABAPENTIN 400 MG CAPSULE PO SCH ×3 (08:46→16:10)
[2022-07-01] MEDS: MULTIVITAMINS WITH MINERALS, THERAPEUTIC TABLET PO SCH (08:46)
[2022-07-01] MEDS: BuPROPion HCL XL 150 MG ER TABLET PO SCH (08:46)
[2022-07-01] MEDS: QUEtiapine FUMARATE 25 MG TABLET PO SCH ×3 (08:46→16:11)
[2022-07-01] MEDS: GABAPENTIN 300 MG CAPSULE PO SCH ×3 (08:46→16:11)
[2022-07-01] MEDS: DOCUSATE SODIUM 250 MG CAPSULE PO SCH ×2 (08:46→16:11)
[2022-07-01] MEDS: PARoxetine HCL 20 MG TABLET PO SCH (08:46)
[2022-07-01] MEDS: OMEGA-3/DHA/EPA/FISH OIL 1,000 MG CAPSULE PO SCH (08:46)
[2022-07-01] MEDS: FLUTICASONE PROPIONATE 50 MCG/SPRAY 16 GM NASAL SPRAY NASAL SCH ×2 (08:49→17:35)
[2022-07-01 14:11] LABS: GLUCOMETER DEV NAME(LOC) POC.BV
[2022-07-01] MEDS ORDERED: BUPR-49 PO (14:48)
[2022-07-01] MEDS ORDERED: PARO-37 PO (14:48)
[2022-07-01] MEDS ORDERED: PRAZ5 PO (14:48)
[2022-07-01] MEDS ORDERED: QUET25TA36 PO (14:48)
[2022-07-01] MEDS ORDERED: GABA-1181 PO (14:48)
[2022-07-01] MEDS ORDERED: DIVA-80 PO (14:48)
[2022-07-01] MEDS ORDERED: GABA-1201 PO (14:48)
[2022-07-01] MEDS ORDERED: QUET200T30 PO (14:48)
[2022-07-01] MEDS ORDERED: MELA5TAB40 PO (14:48)
[2022-07-01] MEDS ORDERED: NALT50TA PO (14:48)
[2022-07-01] MEDS ORDERED: MIRT30 PO (14:48)
[2022-07-01] MEDS ORDERED: OMEG-135 PO (14:48)
[2022-07-01] MEDS: NICOTINE POLACRILEX 2 MG LOZENGE PO PRN (17:35)
[2022-07-01] MEDS: MAGNESIUM HYDROXIDE SUSPENSION 30 ML UDCUP PO PRN (18:15)
[2022-07-01] MEDS: MELATONIN 5 MG TABLET PO SCH (20:14)
[2022-07-01] MEDS: QUEtiapine FUMARATE 200 MG TABLET PO SCH (20:14)
[2022-07-01] MEDS: MIRTAZAPINE 30 MG TABLET PO SCH (20:15)
[2022-07-01] MEDS: PRAZOSIN HCL 5 MG CAPSULE PO SCH (20:15)
[2022-07-01 20:17] VITALS: BP 118/71
[2022-07-02] MEDS ORDERED: FLUT16SP NASAL (06:21)
[2022-07-02] MEDS: FLUTICASONE PROPIONATE 50 MCG/SPRAY 16 GM NASAL SPRAY NASAL SCH (08:20)
[2022-07-02] MEDS: PARoxetine HCL 20 MG TABLET PO SCH (08:20)
[2022-07-02] MEDS: MULTIVITAMINS WITH MINERALS, THERAPEUTIC TABLET PO SCH (08:20)
[2022-07-02] MEDS: GABAPENTIN 300 MG CAPSULE PO SCH (08:21)
[2022-07-02] MEDS: DIVALPROEX SODIUM 500 MG ER TABLET PO SCH (08:21)
[2022-07-02] MEDS: GABAPENTIN 400 MG CAPSULE PO SCH (08:21)
[2022-07-02] MEDS: BuPROPion HCL XL 150 MG ER TABLET PO SCH (08:21)
[2022-07-02] MEDS: NALTREXONE HCL 50 MG TABLET PO SCH (08:22)
[2022-07-02] MEDS: OMEGA-3/DHA/EPA/FISH OIL 1,000 MG CAPSULE PO SCH (08:25)
[2022-07-02] MEDS: DOCUSATE SODIUM 250 MG CAPSULE PO SCH (08:25)
[2022-07-02] MEDS: QUEtiapine FUMARATE 25 MG TABLET PO SCH (08:26)
== END 2022-07-02 08:30 | disposition home or self-care (01) | DRG 750 ==
LOC: EMS 12:33 → B2S 18:23
PROVIDERS: ADMIT Psychiatry & Neurology Psychiatry; ATTEND Psychiatry & Neurology Psychiatry
DX: F25.1 Schizoaffective disorder, depressive type (principal); R45.851 Suicidal ideations; D64.9 Anemia, unspecified; F14.90 Cocaine use, unspecified, uncomplicated; F15.90 Other stimulant use, unspecified, uncomplicated; F31.9 Bipolar disorder, unspecified; F43.10 Post-traumatic stress disorder, unspecified; J44.9 Chronic obstructive pulmonary disease, unspecified; M19.019 Primary osteoarthritis, unspecified shoulder; N18.9 Chronic kidney disease, unspecified; Z96.619 Presence of unspecified artificial shoulder joint; F12.10 Cannabis abuse, uncomplicated; Z20.822 Contact with and (suspected) exposure to COVID-19; G89.29 Other chronic pain; T43.591A Poisoning by other antipsychotics and neuroleptics, accidental (unintentional), initial encounter; Z55.9 Problems related to education and literacy, unspecified; Z59.00 Homelessness unspecified; Z63.9 Problem related to primary support group, unspecified; Z65.3 Problems related to other legal circumstances; Z79.899 Other long term (current) drug therapy; Z87.891 Personal history of nicotine dependence; Y92.89 Other specified places as the place of occurrence of the external cause
CPT/HCPCS: 80053; 80164; 83735; 85025; 93005; 99285; G0480; G0481; Q9967